=== PATIENT | female | born 1940 | race Caucasian/White ===

== ENCOUNTER 2022-04-18 12:29 | Emergency (ER) | payer MEDICARE ==
[~2022-04-18] VITALS: Ht 160 cm; Wt 61.2 kg
[2022-04-18 12:40] VITALS: BP_SYST 128
--- NOTE | 2022-04-18 12:45 | NUR ---
Patient to ER bed 02 to gown for evaluation. Side rails up. Report given to LALA UGARTE.
--- NOTE | 2022-04-18 13:00 | NUR ---
ER Dr. GALAN at bedside examining patient.
[2022-04-18] MEDS ORDERED: LEVO100C4 (13:04)
[2022-04-18] MEDS ORDERED: FLUT12AE3 (13:12)
[2022-04-18] MEDS ORDERED: FAMO10TA41 (13:12)
[2022-04-18] MEDS ORDERED: GABA-331 (13:12)
[2022-04-18] MEDS ORDERED: TIOT4MIS5 (13:12)
[2022-04-18] MEDS ORDERED: LIDO1ADH77 (13:12)
[2022-04-18] MEDS ORDERED: PARO10TA75 ×2 (13:12→13:17)
[2022-04-18] MEDS ORDERED: PRED10TA (13:15)
[2022-04-18] MEDS ORDERED: ALBU90AE2 (13:15)
[2022-04-18] MEDS ORDERED: BENZ100C92 (13:15)
[2022-04-18] MEDS ORDERED: AMAN100C18 (13:17)
[2022-04-18] MEDS ORDERED: CETI10CA20 (13:17)
[2022-04-18] MEDS ORDERED: CARB1TAB33 (13:19)
[2022-04-18] MEDS ORDERED: MONT-40 (13:19)
--- NOTE | 2022-04-18 14:45 | NUR ---
Lab here to draw labs.
[2022-04-18 15:10] LABS: BASOPHILS % (AUTO) 0.4 % (0.0-2.0); EOSINOPHILS # (AUTO) 0.3 K/uL (0.0-0.4); HEMOGLOBIN 13.9 g/dL (12.0-16.0); LYMPHOCYTES # (AUTO) 1.3 K/uL (1.0-5.5); LYMPHOCYTES % (AUTO) 12.1 % (20.5-51.5); MEAN CORPUSCULAR HEMOGLOBIN 32 pg (27-31); MEAN CORPUSCULAR HGB CONC 34 % (32-36); MEAN CORPUSCULAR VOLUME 93 fL (79.0-98.0); MONOCYTES # (AUTO) 1.1 K/uL (0.0-1.0); MONOCYTES % (AUTO) 9.6 % (1.7-9.3); NEUTROPHILS # (AUTO) 8.4 K/uL (1.8-7.7); PLATELET COUNT (AUTO) 178 K/uL (130-430); RED BLOOD CELL COUNT(AUTO) 4.42 MIL/uL (4.2-6.2); RED CELL DISTRIBUTION WIDTH 13.8 % (9.0-15.0); WHITE BLOOD COUNT (AUTO) 11.2 K/uL (4.8-10.8)
[2022-04-18 15:23] LABS: ANION GAP 4 (5-15); CALCIUM 9.5 mg/dL (8.4-11.0); CHLORIDE 108 mmol/L (98-107); CREATININE 0.71 mg/dL (0.55-1.30); GLUCOSE 90 mg/dL (70-99); UREA NITROGEN, BLOOD 18 mg/dL (8-21)
[2022-04-18 15:36] LABS: ALANINE AMINOTRANSFERASE 15 U/L (12-78); ALBUMIN 3.3 g/dL (3.4-4.8); ASPARTATE AMINOTRANSFERASE 17 U/L (10-37); TOTAL BILIRUBIN 0.4 mg/dL (0.0-1.0)
--- NOTE | 2022-04-18 15:42 | NUR ---
patient reasses no acute distress no sob no cp. denies nausea vomiting.
[2022-04-18 15:51] LABS: NEUTROPHILS % (AUTO) 74.9 % (40.0-70.0)
[2022-04-18 17:49] VITALS: BP_SYST 120
--- NOTE | 2022-04-18 17:52 | NUR ---
Patient given written and verbal discharge instructions and verbalizes understanding. ER MD discussed with patient the results and treatment provided. Patient in stable condition. ID arm band removed. IV catheter removed intact and dressing applied, no active bleeding. Patient educated on pain management and to follow up with PMD. Pain Scale . Opportunity for questions provided and answered. Medication side effect fact sheet provided.
--- NOTE | 2022-04-18 17:54 | NUR ---
patient condition stable no cp, no nausea vomiting d/c home with instructions after care reviewed understood left er with daughter.
--- NOTE | 2022-04-18 18:06 | NUR ---
Patient given written and verbal discharge instructions and verbalizes understanding. ER DR. ARNIE BELTRÁN discussed with patient the results and treatment provided. Patient in stable condition. ID arm band removed. IV catheter removed intact and dressing applied, no active bleeding. Patient educated on pain management and to follow up with PMD. Pain Scale 0/10. Opportunity for questions provided and answered. Medication side effect fact sheet provided.
== END 2022-04-18 18:06 | disposition home or self-care (01) ==
LOC: SED 12:29
DX: R07.2 Precordial pain (principal); Z79.899 Other long term (current) drug therapy; Z20.822 Contact with and (suspected) exposure to COVID-19
CPT/HCPCS: 36415; 71045; 80053; 84484; 85025; 93005; 99285